=== PATIENT | female | born 1995 | race Caucasian/White ===

== ENCOUNTER 2017-10-09 17:35 | Emergency (ER) | payer OTHER ==
[~2017-10-09] VITALS: Ht 170.2 cm; Wt 89.8 kg
[~2017-10-09 17:35] MED LIST: ACEASPCAF PO; ALBU90OI INH; AZIT250 PO; BENZ100A PO; Bactrim Ds Tab1 EACH PO; DIPATR PO; DIPH25 PO; GUAI120S1 PO; HYDACE5 PO; IBUP800 PO; MULVITMINE PO; NAPR500 PO; ONDA4ODT MM; PENVK500 PO; PRED20 PO; Percocet 5-3251 EACH PO; Prilosec Otc20 MG PO; Pyridium200 MG PO; RANI150 PO; RXTRAM50 PO; TRAM50 PO
[2017-10-09] MEDS ORDERED: Cleocin HCl300 MG PO (17:56)
== END 2017-10-09 18:04 | disposition home or self-care (01) ==
LOC: ER 17:35
DX: K04.7 Periapical abscess without sinus (principal); F17.200 Nicotine dependence, unspecified, uncomplicated; Z88.0 Allergy status to penicillin; Z91.09 Other allergy status, other than to drugs and biological substances
CPT/HCPCS: 99282

== ENCOUNTER 2018-08-17 18:39 | Emergency (ER) | payer OTHER ==
[~2018-08-17] VITALS: Ht 170.2 cm; Wt 80.7 kg
[~2018-08-17 18:39] MED LIST changes: +Cleocin HCl300 MG PO
[2018-08-17] MEDS ORDERED: HYDR1TAB94 PO (20:32)
== END 2018-08-17 20:01 | disposition home or self-care (01) ==
LOC: ER 18:39
DX: S63.502A Unspecified sprain of left wrist, initial encounter (principal); S80.211A Abrasion, right knee, initial encounter; W01.0XXA Fall on same level from slipping, tripping and stumbling without subsequent striking against object, initial encounter; Z88.0 Allergy status to penicillin; Z91.048 Other nonmedicinal substance allergy status; F17.210 Nicotine dependence, cigarettes, uncomplicated
CPT/HCPCS: 29125; 73110; 99283-25

== ENCOUNTER → 2023-05-29 | Outpatient (CLI) | payer OTHER ==
[~2023-05-29] MED LIST changes: +HYDR1TAB94 PO
[2023-05-29 09:59] LABS: BASOPHILS ABSOLUTE AUTO 0.07 K/mm3 (0.00-0.23); BASOPHILS PERCENT AUTO 1 % (0-2); EOSINOPHILS ABSOLUTE AUTO 0.22 K/mm3 (0.00-0.68); EOSINOPHILS PERCENT AUTO 3 % (0-6); Hematocrit 45.5 % (33.0-51.0); Hemoglobin 16.6 g/dL (11.5-16.0); IMMATURE GRAN ABSOLUTE AUTO 0.02 K/mm3 (0.00-0.10); IMMATURE GRAN PERCENT AUTO 0 % (0-1); LYMPHOCYTES ABSOLUTE AUTO 3.32 K/mm3 (0.84-5.20); LYMPHOCYTES PERCENT AUTO 39 % (21-46); MONOCYTES PERCENT AUTO 9 % (4-13); Mean Corpuscular HGB 33.7 pg (26.0-34.0); Mean Corpuscular HGB Conc 36.5 g/dL (31.5-36.5); Mean Corpuscular Volume 93 fL (80-100); Mean Platelet Volume 9.7 fL (9.1-12.4); NEUTROPHILS ABSOLUTE AUTO 4.12 K/mm3 (1.96-9.15); NEUTROPHILS PERCENT AUTO 48 % (41-73); Platelet Count 287 K/mm3 (150-400); RDW Coefficient Variation 11.9 % (11.7-14.2); RDW Standard Deviation 40.6 fL (35.1-46.3); Red Blood Cell Count 4.92 M/mm3 (3.80-5.20); White Blood Cell Count 8.55 K/mm3 (4.00-11.30)
[2023-05-29 10:10] LABS: Albumin/Globulin Ratio 1.2 (0.8-1.8); Bilirubin, Total 0.4 mg/dL (0.1-1.0); Bun/Creatinine Ratio 22.1 (12.0-20.0); Creatinine, Blood 0.68 mg/dL (0.40-1.00); Globulin, Blood 3.4 g/dL (2.2-4.0); Potassium, Blood 3.6 mmol/L (3.5-5.5); Total Protein, Blood 7.4 g/dL (6.4-8.2)
== END | disposition home or self-care (01) ==
LOC: LAB SHORT 09:53 → LAB 09:53
PROVIDERS: Emergency Medicine
DX: K92.1 Melena (principal)
CPT/HCPCS: 80053; 85025

== ENCOUNTER → 2024-04-29 | Outpatient (CLI) | payer OTHER ==
[~2024-04-29] MED LIST changes: +BUSP10
== END ==
LOC: LAB SHORT 10:26 → LAB 10:26
DX: B99.9 Unspecified infectious disease (principal)
CPT/HCPCS: 87070; 87205; 87252

== ENCOUNTER 2024-06-13 21:26 | Emergency (ER) | payer OTHER ==
[~2024-06-13] VITALS: Ht 167.6 cm; Wt 108.0 kg
[2024-06-13 21:40] VITALS: BP 144/93
[2024-06-13] MEDS ORDERED: Ondansetron HCl 2 MG / ML 2ML Vial IV PRN (21:45)
[2024-06-13] MEDS ORDERED: Ondansetron 4 MG SoluTab SL ONE (22:05)
[2024-06-13 22:15] LABS: BASOPHILS ABSOLUTE AUTO 0.05 K/mm3 (0.00-0.23); BASOPHILS PERCENT AUTO 1 % (0-2); EOSINOPHILS ABSOLUTE AUTO 0.13 K/mm3 (0.00-0.68); EOSINOPHILS PERCENT AUTO 1 % (0-6); Hematocrit 46.8 % (33.0-51.0); Hemoglobin 16.2 g/dL (11.5-16.0); IMMATURE GRAN ABSOLUTE AUTO 0.04 K/mm3 (0.00-0.10); IMMATURE GRAN PERCENT AUTO 0 % (0-1); LYMPHOCYTES ABSOLUTE AUTO 2.86 K/mm3 (0.84-5.20); LYMPHOCYTES PERCENT AUTO 28 % (21-46); MONOCYTES ABSOLUTE AUTO 0.72 K/mm3 (0.16-1.47); MONOCYTES PERCENT AUTO 7 % (4-13); Mean Corpuscular HGB 32.7 pg (26.0-34.0); Mean Corpuscular HGB Conc 34.6 g/dL (31.5-36.5); Mean Corpuscular Volume 95 fL (80-100); Mean Platelet Volume 9.9 fL (9.1-12.4); NEUTROPHILS ABSOLUTE AUTO 6.47 K/mm3 (1.96-9.15); NEUTROPHILS PERCENT AUTO 63 % (41-73); Platelet Count 269 K/mm3 (150-400); RDW Standard Deviation 41.6 fL (35.1-46.3); Red Blood Cell Count 4.95 M/mm3 (3.80-5.20); White Blood Cell Count 10.27 K/mm3 (4.00-11.30)
[2024-06-13 22:20] LABS: Source, Urine Clean Catch
[2024-06-13 22:22] LABS: Bilirubin, Urine Neg (Neg); Blood, Urine 1+ (Neg); Glucose Qualitative, Urine Neg (Neg); Ketones, Urine Neg (Neg); Leukocyte Esterase, Urine 1+ (Neg); Nitrite, Urine Neg (Neg); Protein, Urine 1+ (Neg); Urobilinogen, Urine 1+ (Normal); pH, Urine 6.5 (5.0-8.0)
[2024-06-13 22:30] LABS: Appearance, Urine Hazy (Clear); Color, Urine Yellow (P-Yellow)
[2024-06-13 22:31] LABS: Amorphous Light (0-Heavy); Bacteria Few /hpf; Red Blood Cells, Urine 0-2 /hpf (0-2); Squamous Epithelial Cells Many /hpf (Few); White Blood Cells, Urine 0-2 /hpf (0-5)
[2024-06-13 22:35] LABS: Albumin, Blood 3.9 g/dL (3.4-5.0); Albumin/Globulin Ratio 1.1 (0.8-1.8); Bilirubin, Total 0.3 mg/dL (0.1-1.0); Bun/Creatinine Ratio 25.4 (12.0-20.0); Calcium, Blood 9.4 mg/dL (8.5-10.1); Creatinine, Blood 0.75 mg/dL (0.40-1.00); Globulin, Blood 3.6 g/dL (2.2-4.0); Total Protein, Blood 7.5 g/dL (6.4-8.2)
[2024-06-13 22:53] LABS: Influenza A, PCR NEGATIVE (NEGATIVE); Influenza B, PCR NEGATIVE (NEGATIVE); Resp Syncytial Virus, PCR NEGATIVE (NEGATIVE); SARS-Cov-2 (COVID-19) PCR, MMC NEGATIVE (NEGATIVE)
[2024-06-14] MEDS ORDERED: [UNRECOGNIZED DRUG - OTHER] PO (16:21)
[2024-06-14] MEDS ORDERED: MIRALAX17 GM PO (16:21)
[2024-06-14] MEDS ORDERED: Adult Glycerin1 EACH PR (16:21)
[2024-06-14] MEDS ORDERED: ONDA4 PO (16:22)
== END 2024-06-13 23:31 | disposition left against medical advice (07) ==
LOC: ER 21:26
PROVIDERS: Emergency Medicine
DX: R51.9 Headache, unspecified (principal); R10.9 Unspecified abdominal pain; R11.10 Vomiting, unspecified; Z53.21 Procedure and treatment not carried out due to patient leaving prior to being seen by health care provider
CPT/HCPCS: 0241U; 36415; 80053; 81001; 83690; 85025; 87430; A9270

== ENCOUNTER 2024-06-14 12:22 | Emergency (ER) | payer OTHER ==
[~2024-06-14] VITALS: Ht 167.6 cm; Wt 99.8 kg
[2024-06-14 13:07] VITALS: BP 137/94
[2024-06-14] MEDS ORDERED: Ondansetron 4 MG SoluTab SL ONE (16:15)
[2024-06-14] MEDS ORDERED: Polyethylene Glycol 3350 17 gm PO ONE (16:15)
[2024-06-14] MEDS ORDERED: Bisacodyl 5 MG TabEC PO ONE (16:15)
[2024-06-14] MEDS ORDERED: Glycerin Adult Supp 1 EA PR ONE (16:15)
[2024-06-14] MEDS ORDERED: Adult Glycerin1 EACH PR (16:21)
[2024-06-14] MEDS ORDERED: [UNRECOGNIZED DRUG - OTHER] PO (16:21)
[2024-06-14] MEDS ORDERED: MIRALAX17 GM PO (16:21)
[2024-06-14] MEDS ORDERED: ONDA4 PO (16:22)
== END 2024-06-14 16:42 | disposition home or self-care (01) ==
LOC: ER 12:22
DX: K59.00 Constipation, unspecified (principal); J45.909 Unspecified asthma, uncomplicated; F17.210 Nicotine dependence, cigarettes, uncomplicated; Z88.0 Allergy status to penicillin; Z88.2 Allergy status to sulfonamides; Z91.048 Other nonmedicinal substance allergy status
CPT/HCPCS: 74018; 99284-25; A9270